=== PATIENT | male | born 1940 | race Caucasian/White ===

== ENCOUNTER → 2018-05-25 12:43 | Day surgery (SDC) | payer OTHER, SELFPAY ==
[2018-05-24 07:33] VITALS: BMI 25.9
== END ==
PROVIDERS: Visit Provider Orthopaedic Surgery

== ENCOUNTER 2018-07-06 12:04 | Day surgery (SDC) | payer OTHER, SELFPAY ==
[2018-06-14 14:15] VITALS: BMI 25.9
[2018-07-06 12:34] VITALS: BP 150/86; PULSE 73; RESP 16; TEMP 36.1; O2SAT 98; BMI 24.4
[2018-07-06] MEDS: LACTATED RINGERS 1,000 ML 42 ML IV (13:16)
--- NOTE | 2018-07-06 13:16 | SUR.PREOP ---
patient resting in bed. Denies complaints at this time. Son at bedside. Bed locked and in low position, call light within reach.
[2018-07-06] MEDS: CEFAZOLIN 2 GM/100 ML FROZ.PIGGY IV (14:10)
--- NOTE | 2018-07-06 14:28 | SUR.OPER ---
Supine on padded OR bed, head on pillow, arms secured on padded arm boards at <90 degrees abduction, legs uncrossed, safety belt at thigh, tape over blanket over lower legs.
[2018-07-06] MEDS: BUPIVACAINE 0.5% W/ EPI (PF) VIAL 30 ML INJ (14:34)
[2018-07-06 15:06] VITALS: BP 125/79; PULSE 69; RESP 11; TEMP 36.3; O2SAT 96
--- NOTE | 2018-07-06 15:10 | P.OP_ITS ---
Operative Date/Time/Diagnoses Date of procedure: 07/06/18 Time of procedure: 14:00 Pre-op diagnosis: Left 4th finger Dupuytren's contracture Post-op diagnosis: same Procedure & Clinicians Procedure: Dupuytren's contracture release involving the left ring fingers Same procedure as scheduled: Yes Indications: Significant contracture of the MCP and PIP joint of the left ring finger. 60 degree contracture at the MCP joint in a 90 degree contracture at the PIP joint. Surgeon: Robel Yanes Click Yes if Unassisted: Yes Anesthesia Type: General Operative Notes Findings: Thick cord formation in the palm of the hand with a large nodule formation over the proximal phalanx. 60 degree contracture of the MCP joint 90 degree contracture of the PIP joint. Closure Type: primary Specimen(s): none sent Estimated Blood Loss (mL): 2 Blood products transfused: none Tourniquet time (min): 35 Procedure in detail: On date of service, patient was met in the holding area. The surgery was once again discussed with the patient and any remaining questions they had were answered fully. The operative site was signed and witnessed by the OR staff. Patient was taken back to the operating theater and placed on the operating table in a supine position. Great care was taken to ensure that all bony prominences were properly padded. A timeout was performed verifying patient's name, procedure, and operative site. A well-padded tourniquet was placed up along the right upper extremity. The right arm was then prepped and draped in the normal sterile fashion. An Esmarch was used to exsanguinate the limb the tourniquet turned up to 250 mmHg. A Lizzy incision was made starting at the crease for the PIP joints and going proximal to the proximal Menjivar crease. A 15 blade was used to incise the skin and fascial tissue. Pickups and tenotomies were used to dissect down through the fascia. The neurovascular bundles were identified proximally and the nerve was dissected free distally throughout the entire incision. The radial digital nerve was uninvolved with the Dupuytren's tissue. But the ulnar digital nerve was involved. Great care was taken to ensure that the nerve was freed from all diseased tissue and kept out of harms way. Once we had a good exposure of the finger and palm, this gave us a good visualization of the Dupuytren's tissue. A palmar as well as finger fasciectomy was performed removing the cord formation as well as nodule formation in the finger. Once all the tissue was removed, we could easily fully extended at the MCP joint as well as partial extend the PIP joint. Next, the wound was copiously irrigated and then closed with a 5-0 nylon suture. The hand was then cleaned, dried, and dressed. Patient was placed into a splint and taken to the PACU in stable condition. Complications: none Condition: stable Disposition: PACU Plan for aftercare: Patient will be in a splint for the next few days until his 1st appointment with hand therapy. Once the splint is removed no restrictions to range of motion. But no lifting more than a few lb for the next 2 weeks. Patient will also have a nighttime splint that he will be wearing for the next 6 -12 weeks.
[2018-07-06 15:11] VITALS: BP 130/77; PULSE 70; RESP 11; O2SAT 96
[2018-07-06 15:16] VITALS: BP 137/79; PULSE 69; RESP 12; O2SAT 96
--- NOTE | 2018-07-06 15:23 | SUR.PHASEI ---
arrived, awake vss, no pain, no nausea.
[2018-07-06 15:25] VITALS: BP 142/82; PULSE 67; RESP 11; TEMP 36.4; O2SAT 97
[2018-07-06 15:45] VITALS: BP 138/80; PULSE 67; RESP 16; TEMP 36.6; O2SAT 98
--- NOTE | 2018-07-06 16:11 | SUR.PHASEII ---
pt ready to go, assisted pt to dress, assessment unchanged and pt left in stable condition.
== END 2018-07-06 16:00 | disposition home or self-care (01) ==
PROVIDERS: Visit Provider Orthopaedic Surgery
PROC: (CPT 26045; principal; 2018-07-06 13:45)
DX: M72.0 Palmar fascial fibromatosis [Dupuytren] (principal); I49.9 Cardiac arrhythmia, unspecified; I10 Essential (primary) hypertension; Z79.82 Long term (current) use of aspirin; Z79.899 Other long term (current) drug therapy; Z87.891 Personal history of nicotine dependence
CPT/HCPCS: 26123; J0690; J2405; J2704; J3010